=== PATIENT | female | born 1980 | race Caucasian/White ===

== ENCOUNTER 2016-09-11 05:18 | Inpatient (IN) | payer OTHER ==
[2016-09-11] MEDS ORDERED: EPSOM SALT 454 GM TP PRN (05:50)
[2016-09-11] MEDS ORDERED: TERBUTALINE SULFATE 1 MG/ML VIAL IV PRN (05:50)
[2016-09-11] MEDS ORDERED: OXYTOCIN/RINGERS LACTATE 1,000 ML IV PRN (05:50)
[2016-09-11] MEDS ORDERED: LR 1,000 ML IV PRN (05:50)
[2016-09-11] MEDS ORDERED: OLIVE OIL 118 ML BTL MISC PRN (05:50)
[2016-09-11 06:31] LABS: % IMMATURE GRANULYOCYTES 0.9 % (0.0-1.1); ABSOLUTE IMMATURE GRANULOCYTES 0.07 10^3/uL (0.00-0.10); ADD DIFF? NO; ADD MORPH? NO; ADD SCAN? NO; ATYPICAL LYMPHOCYTE FLAG 0 (0-99); FRAGMENT RBC FLAG 0 (0-99); HEMATOCRIT 36.6 % (38.0-47.0); LEFT SHIFT FLG 10 (0-99); LIPEMIA HEMOLYSIS FLAG 90 (0-99); MEAN CELL HEMOGLOBIN 34.2 pg (27.9-34.1); MEAN CELL HEMOGLOBIN CONCENTR. 35.5 g/dL (32.4-36.7); MEAN CELL VOLUME 96.3 fL (81.5-99.8); PLATELET CLUMPS FLAG 10 (0-99); PLATELET COUNT 223 10^3/uL (150-400); RED CELL DISTRIBUTION WIDTH 11.9 % (11.5-15.2)
[2016-09-11] MEDS ORDERED: LR 500 ML IV PRN (08:16)
[2016-09-11] MEDS ORDERED: OXYTOCIN/RINGERS LACTATE 500 ML IV SCH (08:30)
--- NOTE | 2016-09-11 08:40 | GHP ---
[f rep st] PREOP HISTORY AND PHYSICAL DATE OF ADMISSION: 09/11/2016 CHIEF COMPLAINT: Rupture of membranes. HISTORY OF PRESENT ILLNESS: The patient is a 35-year-old G3, P1-1-0-2 female, who at 37-5/7 weeks gestation presents with premature rupture of membranes at 4: 00 a.m. She is dated by an LMP and 7-week ultrasound. PAST MEDICAL HISTORY: Negative. PAST SURGICAL HISTORY: She has had 2 previous surgeries, right shoulder surgery and oral surgery. OBSTETRICAL HISTORY: She has had 2 previous NSVDs. GYNECOLOGIC HISTORY: Negative. ALLERGIES: She is allergic to morphine and penicillins. FAMILY HISTORY: Noncontributory. MEDICATIONS: She is currently taking vitamin D and C, probiotics, B complex, calcium, magnesium, omega-3, vitamin, and a daily baby aspirin. REVIEW OF SYSTEMS: Positive for loss of fluid. She denies any vaginal bleeding or contractions. PHYSICAL EXAMINATION: VITAL SIGNS: Stable. ABDOMEN: Gravid, nontender. PELVIC: Her cervical exam is 2, 50, and -2 station, vertex. Clear amniotic fluid is present. heart tones are in the 130s, with moderate variability and positive excels. ASSESSMENT AND PLAN: This is a 35-year-old G3, P2 female who is at 37-5/7 weeks gestation, with premature rupture of membranes. well-being is reassuring. GBS is negative. Recommend beginning Pitocin to induce labor to decrease the risk of chorioamnionitis, which the patient agrees to. /[id number]/MODL MTDD
[2016-09-11] MEDS ORDERED: fentaNYL 100 MCG/2 ML INJ ONE ×2 (10:39→13:02)
[2016-09-11] MEDS ORDERED: fentaNYL 2MCG/ML/BUP 0.1% RTU 100 ML BAG EP ONE (10:40)
[2016-09-11] MEDS ORDERED: BUPIVACAINE 0.25% 30 ML SDV ONE (10:40)
[2016-09-11] MEDS ORDERED: ONDANSETRON 4 MG/2 ML VIAL IVP PRN (11:16)
[2016-09-11] MEDS ORDERED: PHENYLEPHRINE HCL 100 MCG/ML SYR IVP PRN (11:16)
[2016-09-11] MEDS ORDERED: fentaNYL 2MCG/ML/BUP 0.1% RTU 100 ML EP SCH (11:30)
[2016-09-11] MEDS ORDERED: LR 500 ML IV SCH (11:30)
[2016-09-11] MEDS ORDERED: CLINDAMYCIN 900 MG/DEXTROSE 50 ML IV ONE (12:03)
--- NOTE | 2016-09-11 12:07 | OBPROG ---
OBG Labor Progress Note Assessment/Plan: Assessment: 35 yo @ 37 5/7, PROM, now breech Plan: 09/11/16 12:05 Discussed with the patients the recommendations to proceed to delivery due to breech presentation. The patient was counseled on the risks of the procedure and agrees to the procedure. Subjective: 35 yo @ 37 5/7, PROM, -feeling painful contractions. Objective: 09/11/16 06:10 Patient ABO/Rh O POSITIVE 09/11/16 06:10 vss - SVE Dilation (cm): 4 Effacement (%): 50 Station: -2 Trejo Current Contraction Pattern: Regular FHR (bpm): 140 FHR Pattern Variability: Moderate FHR Category: 2 Membranes: SROM Amniotic Fluid Color: Clear (breech confirmed by US) Oxytocin Orders Assessment - Pre-Induction/Augmentation Assessment Gestational Age: 37 week(s) and 5 day(s) ICD10 Worksheet Patient Problems: Problems Problem Status Onset PROM (premature rupture of membranes) Acute
[2016-09-11] MEDS ORDERED: GENTAMICIN PHARMACY TO DOSE MISC SCH (12:15)
[2016-09-11] MEDS ORDERED: GENTAMICIN SULFATE 300 MG in D5W 100 ML IV ONE (12:30)
[2016-09-11] MEDS ORDERED: SIMETHICONE 80 MG TAB CHEW PO PRN (12:46)
[2016-09-11] MEDS ORDERED: PROMETHAZINE HCL 25 MG/ML INJ IVP PRN (12:46)
[2016-09-11] MEDS ORDERED: HYDROCODONE/APAP 5/325 TAB PO PRN (12:46)
[2016-09-11] MEDS ORDERED: FAMOTIDINE 20 MG/NACL/50 ML BAG IV ONE (12:56)
[2016-09-11] MEDS ORDERED: CITRIC ACID/SODIUM CITRATE 30 ML UDCUP ONE (12:56)
[2016-09-11] MEDS ORDERED: CITRIC ACID/SODIUM CITRATE 30 ML UDCUP PO ONE (13:00)
[2016-09-11] MEDS ORDERED: FAMOTIDINE 20 MG/2 ML SDV IVP ONE (13:00)
[2016-09-11] MEDS ORDERED: morphINE PF 5 MG/10 ML INJ ONE (13:04)
[2016-09-11] MEDS ORDERED: METHYLERGONOVINE MAL 0.2 MG/ML INJ ONE (13:40)
--- NOTE | 2016-09-11 14:27 | POSTANESTH ---
Post Anesthetic Evaluation Cardiovascular Status: Normal, Stable Respiratory Status: Normal, Stable Level of Consciousness/Mental Status: Can Participate in Eval Pain Control: Adequate, Prn Tx Ordered Nausea/Vomiting Control: Adequate, Prn Tx Ordered Complications Possibly Related to Anesthesia: None Noted (labor epidural converted to C/S for breach - uncomplicated delivery)
[2016-09-11] MEDS ORDERED: KETOROLAC 30 MG/1 ML SDV ONE (14:59)
[2016-09-11] MEDS: KETOROLAC 30 MG/1 ML SDV IVP SCH ×2 (16:20→22:03)
[2016-09-12] MEDS: KETOROLAC 30 MG/1 ML SDV IVP SCH ×2 (04:45→10:47)
--- NOTE | 2016-09-12 10:55 | OBPP ---
Progress Note Assessment/Plan: Assessment: POD#1 s/p pLTCS for breech Recovering appropriately Rh pos, Rub imm Plan: Routine care D/c taylor D/C iv Oral pain meds Ambulate Discussed home POD#2-3 09/12/16 10:54 Subjective: Overall feeling well, much better than she anticipated after C/S. Baby BF well. Pain controlled with toradol. Ambulating without any issues. Taylor in place. No heavy bleeding. Objective: 09/12/16 05:25 Patient ABO/Rh O POSITIVE 09/11/16 06:10 Temp Pulse Resp BP Pulse Ox 36.3 C 68 16 93/46 L 96 09/12/16 09:29 09/12/16 09:29 09/12/16 09:29 09/12/16 09:29 09/12/16 09:29 Gen: NAD, ambulating, alert, awake Resp: unlabored CV: RRR Abd: soft, non distended, minimally tender Bandage: clean/dry Ext: no edema Breasts: soft Uterine Position/Fundal Height: Umbilicus -2 Uterine Tone: Firm
[2016-09-12] MEDS: IBUPROFEN 600 MG TAB PO PRN (17:58)
[2016-09-12] MEDS: DOCUSATE SODIUM 100 MG CAP PO PRN (19:22)
[2016-09-13] MEDS: IBUPROFEN 600 MG TAB PO PRN ×2 (00:13→07:16)
[2016-09-13] MEDS: DOCUSATE SODIUM 100 MG CAP PO PRN ×2 (07:17→16:39)
--- NOTE | 2016-09-13 10:11 | OBPP ---
Progress Note Assessment/Plan: Assessment: POD#2 s/p pLTCS for breech Recovering appropriately Rh pos, Rub imm Plan: Routine care ibu 400 mg q4h Ambulate Reviewed safe interval > 18 months after C/S Home POD#3 Subjective: Feels well. Wants to do ibuprofen 400 mg every 4 hours as seems to wear off at this point. BF going well. No heavy bleeding. Showered. declines norco Objective: 09/12/16 05:25 Patient ABO/Rh O POSITIVE 09/11/16 06:10 Temp Pulse Resp BP Pulse Ox 36.2 C 60 18 102/57 L 97 09/13/16 00:31 09/13/16 00:31 09/13/16 00:31 09/13/16 00:31 09/13/16 00:31 Gen: NAD Resp: unlabored CV: RRR Abd: soft, minimally tender, mildly distended Uterus: firm below U Incision: c/d/i with steri strips Ext: no edema Breasts: soft
[2016-09-13] MEDS: IBUPROFEN 200 MG TAB PO PRN ×3 (12:15→20:25)
[2016-09-14] MEDS: IBUPROFEN 200 MG TAB PO PRN ×4 (00:04→12:33)
[2016-09-14] MEDS: DOCUSATE SODIUM 100 MG CAP PO PRN (08:26)
[2016-09-14 14:02] VITALS: BP 108/73; PULSE 86; RESP 15; TEMP 98.1; O2SAT 97
--- NOTE | 2016-09-14 14:28 | OBGCSDC ---
General Delivery Information - General Info : 4 Para: 2 Delivery Physician/CNM: Abiola Vincent Net C Developer: Diamond Rivera Admission Date: 09/11/16 Labs: Patient ABO/Rh O POSITIVE 09/11/16 06:10 Hct 32.8 % (38.0-47.0) L 09/12/16 05:25 Vaginal - Operations/Procedures L&D Analgesia/Anesthesia Type: Epidural, Spinal - Delivery Number of Prior Sections: 0 Indications for Current Section: Breech Type: Primary Surgical Procedures: Unscheduled Intra-op Complications: None EBL: 800 ml L&D Analgesia/Anesthesia Type: Epidural, Spinal - Hospital Course Antepartum: h/o IUGR Intrapartum: switch from vertex to breech presentation : none [place] [facility] [place] Delivery Date: 09/11/16 Delivery Time: 13:36 GILBERT: 09/27/16 Gestational Age: 38 week(s) and 1 day(s) Sex of Infant: Male Weight (gm): 2840 g Score (1 Min): 9 Score (5 Min): 9 Discharge Information - Discharge Information Condition: Good
--- NOTE | 2016-09-14 14:29 | OBPP ---
Progress Note Assessment/Plan: Assessment: 35 yo s/p ltcs for breech, pod 3, doing well. Plan: Rh +. Routine care. Home today. Subjective: 35 yo s/p ltcs for breech, pod 3, doing well. Objective: 09/12/16 05:25 Patient ABO/Rh O POSITIVE 09/11/16 06:10 Temp Pulse Resp BP Pulse Ox 36.7 C 86 15 108/73 97 09/14/16 09:40 09/14/16 09:40 09/14/16 09:40 09/14/16 09:40 09/14/16 09:40 Uterine Tone: Firm Physical Exam - Physical Exam General Appearance: alert Respiratory: lungs clear Cardiac/Chest: regular rate, rhythm Abdomen: non-tender Extremities: non-tender Skin: warm/dry Neuro/Psych: oriented x 3
--- NOTE | 2016-09-15 05:15 | GOP ---
[f rep st] OPERATIVE REPORT DATE OF OPERATION: 09/11/2016 SURGEON: Abiola Kaur MD PREOPERATIVE DIAGNOSIS: Intrauterine at 37-5/7 weeks gestation with breech presentation in labor. POSTOPERATIVE DIAGNOSIS: same PROCEDURE PERFORMED: low transverse section FINDINGS: viable in elisa breech presentation INDICATIONS: The patient is a 35-year-old, G3, P 1-1-0-2-1 who presented at 37- 5/7 weeks gestation with premature rupture of membranes. On initial exam, the patient was 2 cm, 50%, dilated -2 station and the fetus was vertex. Recommended to the patient to begin Pitocin for premature rupture of membranes, which the patient agreed to. The patient was then checked approximately 3 hours later and was noticed to be in breech presentation. Recommended to the patient we undergo a delivery, which the patient agreed to. DESCRIPTION OF PROCEDURE: The patient was taken to the operating room where she was prepped and draped in normal sterile fashion in the dorsal supine position with a leftward tilt. A surgical time-out was performed, verifying the patient's name, date of , planned procedure, and site. The patient received 2 g of Ancef preoperatively. A Pfannenstiel skin incision was made with a scalpel and carried through to the underlying fascia. The fascia was incised in the midline and extended laterally. The superior aspect of the fascia was grasped with Tommie clamps and the rectus muscles dissected off bluntly and with the Bovie cautery. The inferior aspect of the fascia was grasped with Tommie clamps. The rectus muscles were dissected off bluntly and with the Bovie cautery, the peritoneum was identified and entered in bluntly. The peritoneum was divided. The vesicouterine peritoneum was incised with Metzenbaum scissors and the bladder flap was created. The bladder blade was replaced. The uterus was incised with a scalpel and a uterine incisions was extended bluntly. The was delivered in elisa breech presentation. The cord was clamped and cut. The infant was handed to the waiting nurse practitioner. The placenta was delivered spontaneously. The uterus was exteriorized and cleared of all clots and debris. The uterine incision was reinspected and reapproximated with 0 Monocryl in a running locked fashion in 2 layers. The gutters were cleared of all clots and debris. The uterine incision was reinspected and noted to be hemostatic. The subfascial spaces were inspected and noted to be hemostatic. The fascia was reapproximated with 0 Vicryl. Subcutaneous tissue was irrigated and the skin was closed with 4-0 Monocryl. All counts were correct x2. /[id number]/MODL MTDD
== END 2016-09-14 15:00 | disposition home or self-care (01) | DRG 766 ==
LOC: FLD 05:18 → OBSVTOIN 05:50 → FOB 17:01
PROVIDERS: ADMIT Obstetrics & Gynecology; ATTEND Obstetrics & Gynecology
PROC: 10D00Z1 Extraction of Products of Conception, Low, Open Approach (ICD-10-PCS; principal; 2016-09-11)
DX: O64.1XX0 Obstructed labor due to breech presentation, not applicable or unspecified (principal); O42.013 Preterm premature rupture of membranes, onset of labor within 24 hours of rupture, third trimester; Z3A.37 37 weeks gestation of pregnancy; Z37.0 Single live birth
CPT/HCPCS: J1200; J1885; J2210; J2274; J2590; J3010